=== PATIENT | female | born 1960 | race Native Hawaiian/Other Pacific Islander ===

== ENCOUNTER 2017-01-24 14:01 | Outpatient (CLI) | payer OTHER ==
[2017-01-24 14:18] LABS: PLATELET COUNT 263 K/uL (152-353)
[2017-01-24 15:00] LABS: POTASSIUM 3.8 mmol/L (3.6-5.2)
== END 2017-01-24 19:05 | disposition home or self-care (01) ==
LOC: LABW 14:01
PROVIDERS: Otolaryngology
DX: Z01.812 Encounter for preprocedural laboratory examination (principal); H72.01 Central perforation of tympanic membrane, right ear; R79.89 Other specified abnormal findings of blood chemistry
CPT/HCPCS: 36415; 80048; 85027

== ENCOUNTER 2019-04-04 17:02 | Outpatient (CLI) | payer OTHER | END 2019-04-04 22:30 | disposition home or self-care (01) | LOC: LAB 17:02 | DX: R05 Cough (principal) | CPT/HCPCS: 87070; 87205 ==

== ENCOUNTER 2019-10-29 09:30 | Outpatient (CLI) | payer OTHER ==
[2019-10-29 10:03] LABS: PLATELET COUNT 294 K/uL (152-353)
[2019-10-29 10:24] LABS: POTASSIUM 4.4 mmol/L (3.6-5.2)
== END 2019-10-29 23:18 | disposition home or self-care (01) ==
LOC: LABW 09:30
PROVIDERS: Physician Assistant
DX: I42.8 Other cardiomyopathies (principal); R53.83 Other fatigue; I10 Essential (primary) hypertension; E53.8 Deficiency of other specified B group vitamins; E55.9 Vitamin D deficiency, unspecified; Z79.899 Other long term (current) drug therapy
CPT/HCPCS: 36415; 80053; 80061; 82607; 82652; 82672; 83036; 84436; 84443; 84479; 85027

== ENCOUNTER 2020-02-13 07:45 | Day surgery (SDC) | payer OTHER ==
[2020-02-11 11:15] LABS: PLATELET COUNT 317 K/uL (152-353)
[2020-02-11 11:25] LABS: POTASSIUM 3.8 mmol/L (3.6-5.2)
== END 2020-02-13 10:42 | disposition home or self-care (01) ==
LOC: OR 07:45
PROVIDERS: ATTEND Student in an Organized Health Care Education/Training Program
PROC: 0DJD8ZZ Inspection of Lower Intestinal Tract, Via Natural or Artificial Opening Endoscopic (ICD-10-PCS; principal; 2020-02-13)
DX: K64.8 Other hemorrhoids (principal); Z12.11 Encounter for screening for malignant neoplasm of colon
CPT/HCPCS: 80053; 85027; 93005; J2250; J2370; J2704

== ENCOUNTER 2021-01-21 08:23 | Outpatient (CLI) | payer OTHER | END 2021-01-21 20:00 | disposition home or self-care (01) | LOC: CT 08:23 | PROVIDERS: ATTEND Nurse Practitioner Family | DX: K43.2 Incisional hernia without obstruction or gangrene (principal); E66.9 Obesity, unspecified ==

== ENCOUNTER 2021-09-17 09:21 | Outpatient (CLI) | payer OTHER | END 2021-09-17 19:20 | disposition home or self-care (01) | LOC: MAMMO 09:21 | PROVIDERS: ATTEND Physician Assistant | DX: Z12.31 Encounter for screening mammogram for malignant neoplasm of breast (principal) ==

== ENCOUNTER 2021-10-05 09:19 | Outpatient (CLI) | payer OTHER | END 2021-10-05 18:51 | disposition home or self-care (01) | LOC: MAMMO 09:19 | PROVIDERS: ATTEND Physician Assistant | DX: N63.20 Unspecified lump in the left breast, unspecified quadrant (principal) ==

== ENCOUNTER 2022-04-04 10:21 | Outpatient (CLI) | payer OTHER | END 2022-04-04 21:37 | disposition home or self-care (01) | LOC: MAMMO 10:21 | PROVIDERS: ATTEND Physician Assistant | DX: N63.20 Unspecified lump in the left breast, unspecified quadrant (principal); N64.89 Other specified disorders of breast | CPT/HCPCS: G0279 ==

== ENCOUNTER 2022-09-26 12:53 | Outpatient (CLI) | payer OTHER | END 2022-09-26 19:28 | disposition home or self-care (01) | LOC: MAMMO 12:53 | PROVIDERS: ATTEND Physician Assistant | DX: R92.8 Other abnormal and inconclusive findings on diagnostic imaging of breast (principal) | CPT/HCPCS: G0279 ==